=== PATIENT | male | born 1950 | race Caucasian/White ===

== ENCOUNTER 2017-05-26 08:32 | Day surgery (SDC) | payer MEDICARE, BC ==
[2017-05-25 11:23] LABS: BASOPHILS % (AUTO) 0.3 % (0-1); EOSINOPHILS # (AUTO) 0.1 X10'3 (0-0.9); EOSINOPHILS % (AUTO) 1.2 % (0-6); HEMATOCRIT 43.6 % (42.0-52.0); HEMOGLOBIN 14.9 g/dl (14.0-17.9); LYMPHOCYTES # (AUTO) 0.6 X10'3 (1.1-4.8); LYMPHOCYTES % (AUTO) 6.4 % (21-51); MEAN CORPUSCULAR HEMOGLOBIN 32.9 PG (27.0-31.0); MEAN CORPUSCULAR HGB CONC 34.1 % (33.0-36.5); MEAN CORPUSCULAR VOLUME 96.3 FL (78-98); MEAN PLATELET VOLUME 7.7 FL (7.4-10.4); MONOCYTES # (AUTO) 0.3 X10'3 (0-0.9); MONOCYTES % (AUTO) 2.7 % (2-12); NEUTROPHILS # (AUTO) 8.4 X10'3 (1.8-7.7); NEUTROPHILS % (AUTO) 89.4 % (42-75); PLATELET COUNT 427 X10'3 (140-440); RED BLOOD COUNT 4.53 X10'6 (4.70-6.10); RED CELL DISTRIBUTION WIDTH 13.4 % (11.5-14.5); WHITE BLOOD COUNT 9.4 X10'3 (4.5-11.0)
[2017-05-25 11:36] LABS: INR 1.4 INR; PARTIAL THROMBOPLASTIN TIME 30 SECONDS (22-32)
[2017-05-25 11:40] LABS: ALANINE AMINOTRANSFERASE 48 U/L (12-78); ALBUMIN/GLOBULIN RATIO 1.1 (1.1-1.5); ALKALINE PHOSPHATASE 45 IU/L (46-116); ANION GAP 7 (8-16); ASPARTATE AMINO TRANSFERASE 22 U/L (10-37); BILIRUBIN,TOTAL 1.5 MG/DL (0.1-1.0); BLOOD UREA NITROGEN 16 MG/DL (7-18); BUN/CREATININE RATIO 13.1 (5.4-32.0); CALCIUM 9.5 MG/DL (8.5-10.1); CHLORIDE 104 MMOL/L (99-107); CREATININE 1.22 MG/DL (0.60-1.10); GLUCOSE 129 MG/DL (70-104); POTASSIUM 4.5 MMOL/L (3.5-5.1); SODIUM 139 MMOL/L (135-145); TOTAL PROTEIN 7.7 G/DL (6.4-8.2); eGFR 59 ML/MIN
[2017-05-26] VITALS (13 sets, daily range): BP systolic 109–133; BP diastolic 61–83
[~2017-05-26] VITALS: Ht 182.9 cm; Wt 97.2 kg
[~2017-05-26 08:32] MED LIST: CARV-50 PO; COU5T PO; DIAZ10TA4 PO; DIGO125T78 PO; FURO-150 PO; LOSA1TAB36 PO; ZOLP12.543 PO
[2017-05-26] MEDS ORDERED: CARV-50 PO (09:00)
[2017-05-26] MEDS ORDERED: FURO-150 PO (09:04)
[2017-05-26] MEDS ORDERED: normal saline 1000ml 1,000 ML IV SCH (10:05)
[2017-05-26] MEDS ORDERED: LORazepam 0.5 MG tablet PO PRN (10:05)
[2017-05-26] MEDS ORDERED: diphenhydrAMINE 25mg capsule PO PRN (10:05)
[2017-05-26] MEDS ORDERED: nitroGLYCERIN 0.4mg SUBLingual tab SL PRN (10:05)
[2017-05-26] MEDS ORDERED: LIDOcaine 1%/PF (10mg/ml) 5ml vial ONE (10:36)
[2017-05-26] MEDS ORDERED: iohexol 350MG/ML 100ml bottle IV ONE (10:36)
[2017-05-26] MEDS ORDERED: iohexol 350 MG/ML 50ML vial IV ONE ×2 (10:36→11:48)
[2017-05-26] MEDS ORDERED: heparin 1,000 UNITS/NS 500ml 500 ML ONE (10:36)
[2017-05-26] MEDS ORDERED: fentaNYL/PF 50MCG/1 ML 2ML syringe ONE ×2 (11:08→11:22)
[2017-05-26] MEDS ORDERED: midazolam 2 mg/2 ml injection ONE ×2 (11:08→11:22)
[2017-05-26] MEDS ORDERED: proCHLORperazine 10 MG/2 ml inj ONE (11:13)
[2017-05-26 12:16] LABS: ISTAT HGB ART 13.3 g/dl (14.0-18.0); ISTAT Hct ART 39 %PCV (42-52); ISTAT O2 SATURATION ARTERIAL 98 % (95-98); ISTAT SOURCE ART
[2017-05-26 12:16] LABS: ISTAT Hct MIX 37 %PCV (42-52); ISTAT O2 SATURATION MIX VENOUS 56 % (60-80); ISTAT SOURCE MIX
[2017-05-26] MEDS ORDERED: HYDROcodone/acetaminophen 10/325mg tab PO PRN (13:15)
[2017-05-26] MEDS ORDERED: OXAZEpam 15mg capsule PO PRN (13:15)
[2017-05-26] MEDS ORDERED: HYDROcodone/acetaminophen 5mg/325mg tablet PO PRN (13:15)
[2017-05-26] MEDS ORDERED: ondansetron/PF 4mg/2ml inj IV PRN (13:15)
[2017-05-26] MEDS ORDERED: proCHLORperazine 10 MG/2 ml inj IV PRN (13:15)
== END 2017-05-26 18:00 | disposition home or self-care (01) ==
LOC: SSTAY O 08:32
PROVIDERS: ATTEND Internal Medicine Cardiovascular Disease
DX: I25.10 Atherosclerotic heart disease of native coronary artery without angina pectoris (principal); I11.0 Hypertensive heart disease with heart failure; I08.3 Combined rheumatic disorders of mitral, aortic and tricuspid valves; I50.9 Heart failure, unspecified; G47.33 Obstructive sleep apnea (adult) (pediatric); I42.9 Cardiomyopathy, unspecified; J44.9 Chronic obstructive pulmonary disease, unspecified; Z79.01 Long term (current) use of anticoagulants; Z79.899 Other long term (current) drug therapy; Z72.89 Other problems related to lifestyle
CPT/HCPCS: 36415; 71020; 80053; 82803; 85014; 85025; 85610; 85730; 93460; 93567; 99152; 99153; A6257; A6258; C1769; J0780; J1644; J2001; J2250; J3010; J7030; Q0163; Q9967; A4620